=== PATIENT | female | born 1990 | race Caucasian/White ===

== ENCOUNTER 2019-09-13 17:07 | Emergency (ER) | payer BC, SELFPAY ==
[2019-09-13 17:27] VITALS: BP 117/64; PULSE 62; RESP 16; TEMP 36.6; O2SAT 100
--- NOTE | 2019-09-13 17:40 | ED.GENADULT ---
HPI - General Adult General Chief complaint: Urogenital-Female Stated complaint: pos uti Time Seen by Provider: 09/13/19 17:40 Source: patient Mode of arrival: ambulatory Limitations: no limitations History of Present Illness HPI narrative: 29-year-old female presents to the [facility] with complaints of urinary symptoms for the past 2 days. Patient states she has had burning with urination, frequency and did note a little bit of pink-tinged urine. Denies any low back pain, fevers, abdominal pain, nausea, vomiting or diarrhea. Patient denies or breast-feeding. Patient states that she is currently on control and that her last period was about 2 weeks ago. Related Data Home Medications Medication Instructions Recorded Confirmed levothyroxine 112 mcg PO DAILY 09/13/19 09/13/19 norethindrone-e.estradiol-iron 1 tablet PO DAILY 09/13/19 09/13/19 [] Allergies Allergy/AdvReac Type Severity Reaction Status Date / Time POLYMOX Allergy Intermediate RASH Uncoded 09/13/19 17:44 Review of Systems Review of Systems: Narrative: CONSTITUTIONAL: Denies fever, chills, or sweats. EYES: Denies visual changes, redness, or discharge. ENT: Denies rhinorrhea, congestion, sore throat, or otalgia. CARDIOVASCULAR: Denies chest pain, palpitations, or edema. RESPIRATORY: Denies cough or dyspnea. GASTROINTESTINAL: Denies abdominal pain, nausea, vomiting, or diarrhea. GENITOURINARY: Pain with urination, frequency x2 days SKIN: Denies rash or itching. MUSCULOSKELETAL: Denies back pain, joint pain, or myalgia. NEUROLOGIC: Denies headache, numbness, or weakness. PSYCHIATRIC: Denies anxiety or depression. PMFSH Social History Social History Gender identity (if verbalized by the patient): Female Comments At the time of my signature I agree with nursing past medical history, surgical, social, and family history. There is no relevant family history pertinent to the presenting complaint. Exam Narrative: Exam Narrative: GENERAL: Well-appearing, well-nourished, and in no acute distress. HEAD: Normocephalic, atraumatic. EYES: PERRLA and EOMI. ENT: Nares clear, no rhinorrhea or epistaxis. Mucous membranes moist. NECK: Supple. No lymphadenopathy CHEST: Clear to auscultation. No respiratory distress. HEART: Regular rate and rhythm. No murmur heard. Normal peripheral pulses. ABDOMEN: Soft, nontender, nondistended, normal active bowel sounds. No CVA tenderness on percussion. EXTREMITIES: Normal range of motion. No edema. SKIN: Warm, dry, no rash. NEURO: No focal deficits. Alert and oriented x3. Course Vital Signs Vital signs: Vital Signs Temperature 36.6 C 09/13/19 17:27 Pulse Rate 62 09/13/19 17:27 Respiratory Rate 16 09/13/19 17:27 Blood Pressure 117/64 09/13/19 17:27 Pulse Oximetry 100 09/13/19 17:27 Temperature 36.6 C 09/13/19 17:27 Pulse Rate 62 09/13/19 17:27 Respiratory Rate 16 09/13/19 17:27 Blood Pressure 117/64 09/13/19 17:27 Pulse Oximetry 100 09/13/19 17:27 Vital signs reviewed. Medical Decision Making Differential Diagnosis Differential Diagnosis: Differential diagnosis: Uncomplicated lower UTI, uncomplicated UTI, pyelonephritis Discussed with patient that based on her symptoms as well as her urine dip I think we will go ahead and place her on antibiotics today to help her with possible UTI. Discussed with patient that we will send the urine off to the lab and if it does come back as needing a different type of antibiotic she will receive a phone call from someone at this office. Discussed with patient she can take Tylenol ibuprofen as needed for her pain. Patient verbalized understanding denies any other questions or concerns at this time. Vital Signs Vital Signs: Vital Signs Temperature 36.6 C 09/13/19 17:27 Pulse Rate 62 09/13/19 17:27 Respiratory Rate 16 09/13/19 17:27 Blood Pressure 117/64
== END 2019-09-13 17:52 | disposition home or self-care (01) ==
PROVIDERS: Emergency Provider Nurse Practitioner Family
DX: N30.01 Acute cystitis with hematuria (principal); E89.0 Postprocedural hypothyroidism; Z85.850 Personal history of malignant neoplasm of thyroid
CPT/HCPCS: 81003; 87086; 87088; 99213; G0463

== ENCOUNTER 2019-09-30 16:19 | Emergency (ER) | payer BC, SELFPAY ==
--- NOTE | 2019-09-30 16:28 | ED.URI ---
HPI - URI/Sore Throat General Chief Complaint: Upper Respiratory Infection Stated Complaint: Cough Time Seen by Provider: 09/30/19 16:50 Source: patient and RN notes reviewed Mode of arrival: ambulatory Limitations: no limitations History of Present Illness HPI Narrative: 29-year-old female presents with concern for cough. She reports 2-week history of cough. Reports the first day of illness she had a temperature of 99.6. Reports history of congestion, rhinorrhea, sore throat. Reports those symptoms have improved, however her cough has not. She reports taking DayQuil and Mucinex. MD elicited complaint: cough Related Data Home Medications Medication Instructions Recorded Confirmed Claritin 09/30/19 levothyroxine 09/30/19 norethindrone-e.estradiol-iron tablet 09/30/19 [] Allergies Allergy/AdvReac Type Severity Reaction Status Date / Time POLYMOX Allergy Intermediate RASH Uncoded 09/13/19 17:44 Review of Systems Review of Systems: Narrative: CONSTITUTIONAL: Denies malaise, chills, sweats, or fever. EYES: Denies visual changes, redness, or discharge. ENT: Reports rhinorrhea. Denies congestion, sinus pain, otalgia and sore throat. CARDIOVASCULAR: Denies chest pain, palpitations, or edema. RESPIRATORY: Reports cough. Denies dyspnea. GASTROINTESTINAL: Denies abdominal pain, nausea, vomiting, diarrhea SKIN: Denies rash or itching. MUSCULOSKELETAL: Denies myalgia. NEUROLOGIC: Denies headache. All systems reviewed & are unremarkable except as noted in HPI and below PMFSH Social History Social History Gender identity (if verbalized by the patient): Female Comments At time of signature, agree with nursing past medical, surgical, social and family history. There is no relevant family history pertinent to the presenting complaint Exam Narrative: Exam Narrative: GENERAL: Well-appearing, well-nourished, and in no acute distress. HEAD: Normocephalic EYES: PERRLA, conjunctivae clear ENT: Nares clear, turbinates erythematous, clear discharge. Mucous membranes moist. TM pearly mera with sharp light reflex bilaterally; no tragal tenderness. Oropharynx not erythematous without lesions. Tonsils not enlarged and without exudate, no drooling, no hoarseness, no trismus, uvula midline. NECK: Supple. No lymphadenopathy CHEST: Clear to auscultation, breath sounds equal. No wheezing, rhonchi, rales, or stridor. No respiratory distress, speaks in full sentences. HEART: Regular rate and rhythm. No murmur heard. SKIN: Warm, dry, no rash. NEURO: Alert and oriented x3. PSYCH: Normal mood and affect Course Course Emergency Course: Patient is aware of diagnosis, understands and agrees to treatment plan. Anticipatory guidance given. Patient agrees to follow-up as directed and is aware of reasons to seek care at the emergency department. Portions of this record may have been created with voice recognition software Vital Signs Vital signs: Vital Signs Temperature 98.7 F 09/30/19 16:31 Pulse Rate 78 09/30/19 16:31 Respiratory Rate 16 09/30/19 16:31 Blood Pressure 131/82 09/30/19 16:31 Pulse Oximetry 100 09/30/19 16:31 Temperature 98.7 F 09/30/19 16:31 Pulse Rate 78 09/30/19 16:31 Respiratory Rate 16 09/30/19 16:31 Blood Pressure 131/82 09/30/19 16:31 Pulse Oximetry 100 09/30/19 16:31 Reviewed. Patient has been instructed to follow up with her primary care provider within the next week regarding her elevated blood pressure today. MDM - URI/Sore Throat MDM Narrative Medical decision making narrative: Differential diagnosis considered: Strep pharyngitis, allergic rhinitis, upper respiratory tract infection, sinusitis, rhinosinusitis, nasopharyngitis. viral pharyngitis, otitis media, otitis externa, pneumonia, bronchitis, viral cough syndrome, viral syndrome, and influenza. Exam findings show no acute concerns or changes; patient is no
[2019-09-30 16:31] VITALS: BP 131/82; PULSE 78; RESP 16; TEMP 37.1; O2SAT 100
== END 2019-09-30 17:03 | disposition home or self-care (01) ==
PROVIDERS: Emergency Provider Nurse Practitioner
DX: J06.9 Acute upper respiratory infection, unspecified (principal); E89.0 Postprocedural hypothyroidism; Z85.850 Personal history of malignant neoplasm of thyroid
CPT/HCPCS: 99213; G0463

== ENCOUNTER 2020-07-26 16:50 | Emergency (ER) | payer BC, OTHER, SELFPAY ==
[2020-07-26 18:06] VITALS: BP 137/65; PULSE 56; RESP 18; TEMP 36.3; O2SAT 100
--- NOTE | 2020-07-26 22:15 | ED.HA ---
HPI - Headache General Chief Complaint: Headache Stated Complaint: MIGRAINE HAHN Time Seen by Provider: 07/26/20 21:57 Source: patient Mode of arrival: ambulatory Limitations: no limitations History of Present Illness HPI Narrative: This patient is a 29 year old female with history of migraine headaches who presents for evaluation of headache. She states she developed a diffuse headache yesterday. This headache has been constant and she reports they normally don't linger as longer. Otherwise her headache is similar to her migraines in the past. Yesterday she had nausea and vomiting. Today she is complaining of weakness, and dizziness from vomiting. She denies visual changes, fever, chills, sore throat, runny nose, cough, diarrhea. She denies focal deficits or difficulty with ambulation. Related Data Home Medications Medication Instructions Recorded Confirmed levothyroxine 09/30/19 norethindrone-e.estradiol-iron tablet 09/30/19 [] Allergies Allergy/AdvReac Type Severity Reaction Status Date / Time POLYMOX Allergy Intermediate RASH Uncoded 07/26/20 18:09 Review of Systems Review of Systems: All systems reviewed & are unremarkable except as noted in HPI and below Constitutional: Constitutional: Denies chills and Denies fever(s) Eyes: Eyes: Denies change in vision and Reports photophobia ENT: Denies nasal congestion and Denies sore throat Cardiovascular: Cardiovascular: Denies chest pain Respiratory: Respiratory: Denies cough and Denies dyspnea Gastrointestinal: Gastrointestinal: Denies abdominal pain, Reports nausea and Reports vomiting Neurologic: Reports headache(s) PMFSH Past Medical History Medical History (Updated 07/27/20 @ 00:37 by Nicole Porras MD) Migraine headache Surgical History Surgical History (Updated 07/26/20 @ 22:18 by Nicole Porras MD) H/O thyroidectomy Social History Social History (Updated 07/26/20 @ 22:18 by Nicole Porras MD) Smoking status: Never smoker Gender identity (if verbalized by the patient): Female Exam Narrative: Exam Narrative: GENERAL: Well-appearing, well-nourished, and in no acute distress. HEAD: Normocephalic, atraumatic EYES: PERRLA and EOMI, conjunctiva clear without discharge EARS: TM's clear bilaterally without erythema or dullness NOSE: Nares clear, no rhinorrhea or epistaxis THROAT:Mucous membranes moist, Oropharynx normal without erythema, exudate, peritonsillar swelling or fluctuance NECK: Supple, without lymphadenopathy or mass RESPIRATORY: No respiratory distress, Airway patent, Respirations non-labored, Clear to auscultation without rales, rhonchi or wheeze HEART: Regular rate and rhythm. No murmur heard. Normal peripheral pulses. ABDOMEN: Soft, nontender, nondistended, normal active bowel sounds. No masses. No rebound or guarding, No organomegaly. EXTREMITIES: No edema, normal strength with full range of motion. SKIN: Warm, dry, normal color without rash NEURO: Alert and oriented x3. CN 2-12 grossly intact. No focal deficits. PSYCH: Normal mood and affect. Course Reevaluation(s) Reevaluation #1: PAtient states her headache has resolved. She feels better. Date: 07/26/20 Time: 23:28 Reevaluation #2: PAtient is ready for discharged. She has not focal deficits to suggest need for imaginag. Date: 07/27/20 Time: 00:37 Vital Signs Vital signs: Vital Signs Temperature 97.3 F L 07/26/20 18:06 Pulse Rate 56 L 07/26/20 18:06 Respiratory Rate 18 07/26/20 18:06 Blood Pressure 137/65 07/26/20 18:06 Pulse Oximetry 100 07/26/20 18:06 Temperature 97.3 F L 07/26/20 18:06 Pulse Rate 64 07/27/20 00:58 Respiratory Rate 18 07/27/20 00:58 Blood Pressure 115/76 07/27/20 00:58 Pulse Oximetry 100 07/27/20 00:58 MDM - Headache Lab Data Labs: UCG Bedside Result Negative Reference Range: Negative
[2020-07-26 22:31] VITALS: BP 110/64; PULSE 52; RESP 16; O2SAT 98
[2020-07-26] MEDS: diphenhydrAMINE HCl INJ 50 MG/ML VIAL 25 MG IV PUSH (22:42)
[2020-07-26] MEDS: METOCLOPRAMIDE HCL INJ 10 MG/2 ML VIAL IV PUSH (22:43)
[2020-07-26] MEDS: SODIUM CHLORIDE 0.9% IV 1,000 ML 999 ML IV CONT (22:43)
[2020-07-26] MEDS: KETOROLAC 30 MG/ML VIAL (*BKC) IV PUSH (22:43)
[2020-07-26 23:18] VITALS: BP 105/68; BP 115/63; BP 117/74; PULSE 53; PULSE 59; PULSE 67
[2020-07-27 00:58] VITALS: BP 115/76; PULSE 64; RESP 18; O2SAT 100
== END 2020-07-27 01:04 | disposition home or self-care (01) ==
PROVIDERS: Emergency Provider General Practice
DX: G43.909 Migraine, unspecified, not intractable, without status migrainosus (principal); E89.0 Postprocedural hypothyroidism
CPT/HCPCS: 81025; 96374; 96375; 99284; J1200; J1885; J2765; J7030

== ENCOUNTER → 2021-07-05 01:08 | Outpatient (CLI) | payer OTHER, SELFPAY ==
[2021-07-06 16:52] LABS: SARS-CoV-2 RNA PCR Negative
== END ==
PROVIDERS: Visit Provider Registered Nurse
DX: R68.89 Other general symptoms and signs (principal); Z20.822 Contact with and (suspected) exposure to COVID-19
CPT/HCPCS: C9803; U0003; U0005

== ENCOUNTER 2022-04-15 10:08 | Emergency (ER) | payer OTHER, SELFPAY ==
[2022-04-15 10:15] VITALS: BP 133/74; PULSE 93; RESP 16; TEMP 37; O2SAT 100
--- NOTE | 2022-04-15 11:10 | ED.URI ---
HPI - URI/Sore Throat General Chief Complaint: Upper Respiratory Infection Stated Complaint: sinus headache, congestion, sore throat Time Seen by Provider: 04/15/22 11:10 Source: patient, RN notes reviewed and old records reviewed Mode of arrival: ambulatory Limitations: no limitations History of Present Illness HPI Narrative: 31 year old female who presents to [facility] care with complaints of sinus congestion, sinus pressure, headache,sore throat, with clear phlegm for the past 2 days. Patient denies any known fevers, chills or sweats, reports history of seasonal allergies and sinus infections. Patient has had COVID vaccinations and Booster, patient denies any body aches. Patient takes daily Vickie and nasal spray, has used some cough drops for her throat and also used steam for sinuses. MD elicited complaint: sore throat, rhinorrhea, nasal congestion, sinus pain and other (headache) Description of mucous: clear Able to tolerate fluids by mouth: Yes Treatments prior to arrival: other (vickie) Related Data Home Medications Medication Instructions Recorded Confirmed levothyroxine 112 mcg tablet 112 mcg PO DAILY 09/30/19 04/15/22 norethindrone 1 mg-ethinyl 1 tablet PO DAILY 09/30/19 04/15/22 estradiol 20 mcg (24)-iron 75 mg (4) tablet ([place] 24) azelastine 205.5 mcg (0.15 %) 2 spray intranasal DAILY 04/15/22 04/15/22 nasal spray epinephrine 0.3 mg/0.3 mL 0.3 mg IM DIRECTED 04/15/22 04/15/22 injection, auto-injector (Auvi-Q) Allergies Allergy/AdvReac Type Severity Reaction Status Date / Time amoxicillin [From Amoxil] Allergy Rash Verified 04/15/22 11:12 POLYMOX Allergy Intermediate RASH Uncoded 07/26/20 18:09 Review of Systems Review of Systems: CONSTITUTIONAL: Denies malaise, chills, sweats, or fever. EYES: Denies visual changes, redness, or discharge. ENT: Reports rhinorrhea, congestion, sinus pain,no otalgia, positive sore throat. CARDIOVASCULAR: Denies chest pain, palpitations, or edema. RESPIRATORY: No reported cough.? Denies dyspnea. GASTROINTESTINAL: Denies abdominal pain, nausea, vomiting, diarrhea SKIN: Denies rash or itching. MUSCULOSKELETAL: Denies myalgia. NEUROLOGIC: Positive for headache. All systems reviewed & are unremarkable except as noted in HPI and below PMFSH Past Medical History Medical History (Updated 04/17/22 @ 15:34 by Verna Martinez NP) Cancer of thyroid Hypothyroidism Migraine headache Seasonal allergies Surgical History Surgical History (Updated 04/17/22 @ 15:35 by Verna Martinez NP) H/O thyroidectomy [place] teeth extracted Social History Social History Smoking status: Never smoker Gender identity (if verbalized by the patient): Female Comments At time of signature, agree with nursing past medical, surgical, social and family history. There is no relevant family history pertinent to the presenting complaint Exam Narrative: GENERAL: Well-appearing, well-nourished, and in no acute distress. HEAD: Normocephalic EYES: PERRLA, conjunctivae clear ENT: Nares clear, turbinates edematous and erythematous, clear discharge. Mucous membranes moist. TM pearly mera with dull light reflex bilaterally; no tragal tenderness. Oropharynx erythematous without lesions. Tonsils not enlarged and without exudate, no drooling, no hoarseness, no trismus, uvula midline. NECK: Supple. No lymphadenopathy CHEST: Clear to auscultation, breath sounds equal. No wheezing, rhonchi, rales, or stridor. No respiratory distress, speaks in full sentences.no cough noted SAO2 100% on room air HEART: Regular rate and rhythm. No murmur heard. SKIN: Warm, dry, no rash. NEURO: Alert and oriented x3. PSYCH: Normal mood and affect Course Course Emergency Course: Patient is aware of diagnosis, understands and agrees to treatment plan.? Anticipatory guidance given.? Patient agrees to follow-up as directed
== END 2022-04-15 11:32 | disposition home or self-care (01) ==
PROVIDERS: Emergency Provider Registered Nurse; PCP Registered Nurse
DX: J32.9 Chronic sinusitis, unspecified (principal); E89.0 Postprocedural hypothyroidism; Z85.850 Personal history of malignant neoplasm of thyroid
CPT/HCPCS: 99213; G0463

== ENCOUNTER 2023-09-17 13:33 | Outpatient (CLI) | payer OTHER, SELFPAY ==
--- NOTE | ~2023-09-17 | MM_ITS ---
EXAMINATION: MM screening lorenzo BI w carl HISTORY: Screening mammogram TECHNIQUE: Craniocaudal and mediolateral oblique 3-D tomosynthesis images were obtained and synthetic 2-D images were generated. Bilateral rotated lateral CC views. CAD analysis was submitted and interp reted. COMPARISON: No prior mammogram is available for comparison at this institution. BREAST PARENCHYMAL COMPOSITION: There are scattered areas of fibroglandular density. FINDINGS: There is no evidence of suspicious mass, calcification, or architectural distortion to sugg est malignancy in either breast. IMPRESSION: 1. No mammographic evidence of malignancy. 2. Recommend routine screening mammography in one year. BI-RADS Category 1: Negative Reviewed, dictated and finalized at location A.
== END 2023-09-17 13:34 ==
PROVIDERS: PCP Registered Nurse; Visit Provider Nurse Practitioner Obstetrics & Gynecology
DX: Z12.31 Encounter for screening mammogram for malignant neoplasm of breast (principal); Z80.3 Family history of malignant neoplasm of breast
CPT/HCPCS: 77063; 77067

== ENCOUNTER 2025-01-02 08:48 | Outpatient (CLI) | payer OTHER, SELFPAY ==
--- NOTE | ~2025-01-02 | MR_ITS ---
EXAMINATION: MR brain/brain stem wo/w con DATE: 01/02/2025 09:49 INDICATION: Vertigo TECHNIQUE: Magnetic resonance imaging (MRI) of the brain and brainstem was performed without and with 20 mL Multihance intravenous contrast. Sequences included sagittal and axial T1-weighted FSE, axial diffusion-weighted FS EPI, axial T2*-weighted GRE, axial T2-weighted FLAIR Propeller, axial T2-weight ed Propeller, small troyu-pa-gavt coronal FIESTA, small gbcqe-fz-lwxi coronal T1-weighted FSE, and sm all apwot-zb-miem axial T1-weighted SPGR. Postcontrast sequences included axial T1-weighted FSE, smal l ffiht-ih-wvmw coronal T1-weighted FSE, and small kjnlg-hx-mabg axial T1-weighted SPGR. Apparent dif fusion coefficient (ADC) maps were created. . COMPARISON: None. FINDINGS: There are no areas of restricted diffusion to suggest acute infarction. No intracranial hemorrhage or abnormal intracranial mass lesion. There are no intraparenchymal signal abnormalities seen on the ot her pulse sequences. The ventricles are symmetric and normal in size. There are no abnormal extra-axi al fluid collections. Normal seventh/eighth cranial nerve complexes. No cerebellopontine angles mass es. No evidence of mastoid or middle ear fluid. Flow voids are seen in the cerebral arteries on th e T2-weighted sequences consistent with their expected patency. Visualized orbits and soft tissues ar e unremarkable. There are no areas of abnormal enhancement on the post contrast images. IMPRESSION: 1. Normal MRI of the brain and internal auditory canals. Reviewed, dictated and finalized at location B.
== END 2025-01-02 08:49 | disposition home or self-care (01) ==
LOC: MICIMG 08:48
PROVIDERS: PCP Psychiatry & Neurology Neurology; Visit Provider Psychiatry & Neurology Neurology
DX: R42 Dizziness and giddiness (principal)
CPT/HCPCS: 70553; A9577